=== PATIENT | female | born 1950 | race Caucasian/White ===

== ENCOUNTER → 2020-02-14 | Emergency (ER) | payer MEDICARE ==
[~2020-02-14] VITALS: Ht 162.6 cm; Wt 65.9 kg
[~2020-02-14] MED LIST: HYDR1TAB10 PO; LIDOcaine Viscous 15ml cup MM STA; dexamethasone sod phosphate 10mg/ml inj PO STA; estrace cream
[2020-02-14 10:17] VITALS: BP 134/74
== END | disposition home or self-care (01) ==
LOC: ER 08:32
DX: J02.9 Acute pharyngitis, unspecified (principal); R50.9 Fever, unspecified; R05 Cough; R51.9 Headache, unspecified; R07.89 Other chest pain; Z20.828 Contact with and (suspected) exposure to other viral communicable diseases; E78.00 Pure hypercholesterolemia, unspecified; K21.9 Gastro-esophageal reflux disease without esophagitis; G89.29 Other chronic pain; F41.9 Anxiety disorder, unspecified; F32.9 Major depressive disorder, single episode, unspecified; F12.90 Cannabis use, unspecified, uncomplicated; Z98.890 Other specified postprocedural states; Z72.89 Other problems related to lifestyle; Z88.1 Allergy status to other antibiotic agents; Z88.8 Allergy status to other drugs, medicaments and biological substances
CPT/HCPCS: 36415; 87081; 87635; 87880; 99283; J1100

== ENCOUNTER 2021-06-13 08:53 | Emergency (ER) | payer MEDICARE ==
[~2021-06-13] VITALS: Ht 162.6 cm; Wt 70.9 kg
[~2021-06-13 08:53] MED LIST changes: -LIDOcaine Viscous 15ml cup MM STA; -dexamethasone sod phosphate 10mg/ml inj PO STA
[2021-06-13 09:34] LABS: BASOPHILS % (AUTO) 0.4 % (0-1); EOSINOPHILS # (AUTO) 0.1 X10'3 (0-0.9); EOSINOPHILS % (AUTO) 1.2 % (0-6); HEMATOCRIT 40.4 % (35.0-45.0); HEMOGLOBIN 13.6 g/dl (12.0-16.0); LYMPHOCYTES # (AUTO) 1.7 X10'3 (1.1-4.8); LYMPHOCYTES % (AUTO) 24.5 % (21-51); MEAN CORPUSCULAR HEMOGLOBIN 31.1 PG (27.0-31.0); MEAN CORPUSCULAR HGB CONC 33.7 g/dL (33.0-36.5); MEAN CORPUSCULAR VOLUME 92.4 FL (78-98); MONOCYTES # (AUTO) 0.4 X10'3 (0-0.9); MONOCYTES % (AUTO) 5.8 % (2-12); NEUTROPHILS # (AUTO) 4.9 X10'3 (1.8-7.7); NEUTROPHILS % (AUTO) 68.1 % (42-75); PLATELET COUNT 437 X10'3 (140-440); RED BLOOD COUNT 4.38 X10'6 (4.20-5.60); RED CELL DISTRIBUTION WIDTH 14.1 % (11.5-14.5); WHITE BLOOD COUNT 7.1 X10'3 (4.5-11.0)
[2021-06-13 09:52] LABS: ALANINE AMINOTRANSFERASE 15 U/L (12-78); ALBUMIN 4.3 G/DL (3.4-5.0); ALBUMIN/GLOBULIN RATIO 1.2 (1.1-1.5); ALKALINE PHOSPHATASE 87 IU/L (46-116); ANION GAP 11 (8-16); ASPARTATE AMINO TRANSFERASE 16 U/L (10-37); BILIRUBIN,TOTAL 0.3 MG/DL (0.1-1.0); BLOOD UREA NITROGEN 14 MG/DL (7-18); BUN/CREATININE RATIO 15.2 (6.6-38.0); CALCIUM 9.2 MG/DL (8.5-10.1); CHLORIDE 105 MMOL/L (99-107); CREATININE 0.92 MG/DL (0.40-0.90); GLUCOSE 105 MG/DL (70-104); LIPASE 114 U/L (73-393); SODIUM 141 MMOL/L (135-145); TOTAL CARBON DIOXIDE 25.1 MMOL/L (24-32); TOTAL PROTEIN 7.9 G/DL (6.4-8.2); eGFR 61 ML/MIN
[2021-06-13 09:56] LABS: CLARITY,URINE SLIGHTLY CLOUDY (Clear); COLOR,URINE YELLOW (Yellow); GLUCOSE, URINE NEGATIVE (Neg); KETONES,URINE NEGATIVE (Neg); LEUKOCYTE ESTERASE ,URINE SMALL (Neg); NITRITES, URINE NEGATIVE (Neg); OCCULT BLOOD,URINE NEGATIVE (Neg); PROTEIN,URINE NEGATIVE (Neg); UROBILINOGEN,URINE 0.2 E.U/dL (0.2-1.0)
[2021-06-13 09:57] LABS: UA COLLECTION TYPE CLN CATCH MIDSTREAM
[2021-06-13 10:05] LABS: MUCUS STRANDS FEW /LPF (Neg); SQUAMOUS EPITHELIAL CELL,UR MODERATE /LPF (FEW)
[2021-06-13 10:06] LABS: RBC,URINE 0-2 /HPF (0-2); WBC,URINE 0-4 /HPF (0-4)
[2021-06-13 10:07] LABS: BACTERIA,URINE FEW /HPF (Neg); TRANSITIONAL EPI CELLS,URINE MODERATE /HPF
[2021-06-13] MEDS ORDERED: ondansetron/PF 4mg/2ml inj IV ONE (10:25)
[2021-06-13] MEDS ORDERED: fentaNYL/PF 50MCG/1 ML 2ML syringe IV ONE (10:25)
--- NOTE | 2021-06-13 10:43 | NUR ---
ASSISTING RN WITH PT CARE, IV STARTED ON FIRST ATTEMPT, MEDICATED PER ORDER, DR DANIELS AWARE, PT HAS FAMILY AT BEDSIDE
[2021-06-13 12:00] VITALS: BP 123/57
== END 2021-06-13 12:19 | disposition home or self-care (01) ==
LOC: ER 08:54
DX: K42.9 Umbilical hernia without obstruction or gangrene (principal); K43.9 Ventral hernia without obstruction or gangrene; E78.00 Pure hypercholesterolemia, unspecified; K21.9 Gastro-esophageal reflux disease without esophagitis; G89.29 Other chronic pain; M79.7 Fibromyalgia; Z90.49 Acquired absence of other specified parts of digestive tract; Z72.89 Other problems related to lifestyle; Z98.890 Other specified postprocedural states; Z88.1 Allergy status to other antibiotic agents; Z88.8 Allergy status to other drugs, medicaments and biological substances
CPT/HCPCS: 36415; 74176; 80053; 81001; 83690; 85025; 87088; 96374; 96375; 99284; J2405; J3010

== ENCOUNTER 2021-06-29 06:46 | Day surgery (SDC) | payer MEDICARE ==
[2021-06-24 16:04] LABS: CLARITY,URINE CLEAR (Clear); GLUCOSE, URINE NEGATIVE (Neg); KETONES,URINE NEGATIVE (Neg); LEUKOCYTE ESTERASE ,URINE NEGATIVE (Neg); NITRITES, URINE NEGATIVE (Neg); OCCULT BLOOD,URINE TRACE-INTACT (Neg); PROTEIN,URINE NEGATIVE (Neg); UROBILINOGEN,URINE 0.2 E.U/dL (0.2-1.0)
[2021-06-24 16:06] LABS: COLOR,URINE STRAW (Yellow); UA COLLECTION TYPE CLN CATCH MIDSTREAM
[2021-06-24 16:10] LABS: BACTERIA,URINE FEW /HPF (Neg); MUCUS STRANDS NONE SEEN /LPF (Neg); RBC,URINE 0-2 /HPF (0-2); SQUAMOUS EPITHELIAL CELL,UR FEW /LPF (FEW); WBC,URINE 0-4 /HPF (0-4)
[2021-06-24 16:10] LABS: BASOPHILS % (AUTO) 0.3 % (0-1); EOSINOPHILS % (AUTO) 0.4 % (0-6); LYMPHOCYTES # (AUTO) 1.9 X10'3 (1.1-4.8); LYMPHOCYTES % (AUTO) 18.5 % (21-51); MEAN CORPUSCULAR HGB CONC 33.4 g/dL (33.0-36.5); MEAN CORPUSCULAR VOLUME 92.8 FL (78-98); MEAN PLATELET VOLUME 6.8 FL (7.4-10.4); MONOCYTES # (AUTO) 0.5 X10'3 (0-0.9); MONOCYTES % (AUTO) 5.1 % (2-12); NEUTROPHILS # (AUTO) 7.7 X10'3 (1.8-7.7); NEUTROPHILS % (AUTO) 75.7 % (42-75); PRE OP HEMATOCRIT 39.9 % (35.0-45.0); PRE OP HEMOGLOBIN 13.3 g/dL (12.0-16.0); PRE OP PLATELET COUNT 424 X10'3 (140-440); RED BLOOD COUNT 4.29 X10'6 (4.20-5.60); RED CELL DISTRIBUTION WIDTH 13.9 % (11.5-14.5)
[2021-06-24 16:22] LABS: ALBUMIN/GLOBULIN RATIO 1.1 (1.1-1.5); ALKALINE PHOSPHATASE 89 IU/L (46-116); BLOOD UREA NITROGEN 17 MG/DL (7-18); BUN/CREATININE RATIO 20.5 (6.6-38.0); CALCIUM 9.4 MG/DL (8.5-10.1); CHLORIDE 105 MMOL/L (99-107); CREATININE 0.83 MG/DL (0.40-0.90); PRE OP ALT 8 U/L (30-65); PRE OP ANION GAP 10 (8-16); PRE OP AST 19 U/L (10-37); PRE OP BILIRUB, TOTAL 0.2 MG/DL (0.0-1.0); PRE OP GLUCOSE 109 MG/DL (70-104); PRE OP POTASSIUM 4.1 MMOL/L (3.4-5.1); PRE OP SODIUM 140 MMOL/L (135-145); TOTAL CARBON DIOXIDE 24.9 MMOL/L (24-32); TOTAL PROTEIN 7.7 G/DL (6.4-8.2); eGFR 68 ML/MIN
[2021-06-29] VITALS (23 sets, daily range): BP systolic 123–153; BP diastolic 61–86
[~2021-06-29] VITALS: Ht 162.6 cm; Wt 72.1 kg
[~2021-06-29 06:46] MED LIST changes: +CHOL20004 PO; +HYDR-3965 PO; -HYDR1TAB10 PO; +clindamycin-Cleocin 900mg/D5W 50 ML IV ONE; -estrace cream; +famotidine 20mg tablet PO ONE; +ringers solution, lacted 1,000 ML IV SCH
[2021-06-29] MEDS ORDERED: proCHLORperazine 10 MG/2 ml inj IV PRN (07:50)
[2021-06-29] MEDS ORDERED: ondansetron/PF 4mg/2ml inj IV PRN (07:50)
[2021-06-29] MEDS ORDERED: morphine 2 MG/ML inj. syringe IV PRN (07:50)
[2021-06-29] MEDS ORDERED: ringers solution, lacted 1,000 ML IV SCH (07:50)
[2021-06-29] MEDS ORDERED: morphine 4 MG/ML inj SYRINge IV PRN (07:50)
[2021-06-29] MEDS ORDERED: meperidine/PF 25mg/ml syringe IV PRN ×2 (07:50)
[2021-06-29] MEDS ORDERED: aprepitant 40mg capsule PO ONE (08:08)
[2021-06-29] MEDS ORDERED: ROPIVAcaine 0.5% (5mg/ml) 30ml vial ONE (09:49)
[2021-06-29] MEDS ORDERED: neostigmine methylsulfate 1 MG/ML 10ml vial ONE (09:57)
[2021-06-29] MEDS ORDERED: sevoflurane 250ml liquid IH ONE (09:57)
[2021-06-29] MEDS ORDERED: glycopyrrolate 0.2mg/ml inj ONE (09:57)
[2021-06-29] MEDS ORDERED: midazolam 1 mg/ML 2ml injection ONE (10:08)
[2021-06-29] MEDS ORDERED: fentaNYL/PF 50MCG/1 ML 2ML syringe ONE (10:08)
[2021-06-29] MEDS ORDERED: propofol inj 20 ML IV ONE (10:17)
[2021-06-29] MEDS ORDERED: rocuronium 10mg/ml inj IV ONE (10:17)
[2021-06-29] MEDS ORDERED: dexamethasone sod phosphate 4mg/ml inj. ONE (10:17)
[2021-06-29] MEDS ORDERED: ondansetron/PF 4mg/2ml inj ONE (10:21)
[2021-06-29] MEDS ORDERED: LIDOcaine 1%/PF 5ML 10 MG/ML VIAL ONE (10:21)
[2021-06-29] MEDS ORDERED: acetaminophen 1,000mg/100ml IV 100 ML IV ONE (11:04)
--- NOTE | 2021-06-29 11:13 | NUR ---
Received from OR via LE, 20G TO RIGHT AC, LAP SITE TO ABD CDI WITH DERMABARMIDA , accompanied by Anesthesiologist DR SIMS and report given by Anesthesiolgist. Addendum: 06/29/21 at 1135 by Gracie Goldstein RN Amended: Links added.
[2021-06-29] MEDS: meperidine/PF 25mg/ml syringe IV PRN ×2 (11:43→12:21)
--- NOTE | 2021-06-29 14:53 | NUR ---
PT DC TO HOME VIA WC WITH . 20G IV DC CATH INTACT DSG APPLIED. PT VERBAL UNDERSTANDING OF DC INSTRUCTIONS. LAP SITES TO ABD CDI. Addendum: 06/29/21 at 1530 by Gracie Goldstein RN Amended: Links added.
== END 2021-06-29 14:53 | disposition home or self-care (01) ==
LOC: PAS 06:46
PROVIDERS: ATTEND Surgery
DX: K43.9 Ventral hernia without obstruction or gangrene (principal); K42.9 Umbilical hernia without obstruction or gangrene; G90.50 Complex regional pain syndrome I, unspecified; D64.9 Anemia, unspecified; I45.10 Unspecified right bundle-branch block; G43.909 Migraine, unspecified, not intractable, without status migrainosus; Z88.1 Allergy status to other antibiotic agents; Z88.8 Allergy status to other drugs, medicaments and biological substances; Z91.018 Allergy to other foods; Z87.01 Personal history of pneumonia (recurrent); Z98.890 Other specified postprocedural states; Z79.899 Other long term (current) drug therapy; Z82.49 Family history of ischemic heart disease and other diseases of the circulatory system; Z80.3 Family history of malignant neoplasm of breast
CPT/HCPCS: 36415; 49652; 49654; 80053; 81001; 82948; 85025; 93005; 93306; C1713; C1781; J0131; J1100; J2175; J2250; J2270; J2405; J2704; J2710; J2795; J3010; J3490; J7030; J7120; J8501; Z7506; Z7508; Z7512; A4618; A7000

== ENCOUNTER 2021-06-29 20:58 | Emergency (ER) | payer MEDICARE ==
[~2021-06-29] VITALS: Ht 162.6 cm; Wt 72.1 kg
[~2021-06-29 20:58] MED LIST changes: -clindamycin-Cleocin 900mg/D5W 50 ML IV ONE; -famotidine 20mg tablet PO ONE; -ringers solution, lacted 1,000 ML IV SCH
[2021-06-29 21:54] VITALS: BP 122/66
[2021-06-29] MEDS ORDERED: normal saline 1000ML IV soln IVB ONE (22:50)
[2021-06-29] MEDS ORDERED: morphine 4 MG/ML inj SYRINge IV ONE (22:55)
[2021-06-29] MEDS ORDERED: ondansetron/PF 4mg/2ml inj IV ONE (22:55)
[2021-06-29 23:30] LABS: BASOPHILS % (AUTO) 0.3 % (0-1); EOSINOPHILS % (AUTO) 0 % (0-6); HEMATOCRIT 40.1 % (35.0-45.0); LYMPHOCYTES # (AUTO) 0.7 X10'3 (1.1-4.8); LYMPHOCYTES % (AUTO) 7.1 % (21-51); MEAN CORPUSCULAR HEMOGLOBIN 29.9 PG (27.0-31.0); MEAN CORPUSCULAR HGB CONC 32.4 g/dL (33.0-36.5); MEAN CORPUSCULAR VOLUME 92.2 FL (78-98); MEAN PLATELET VOLUME 6.7 FL (7.4-10.4); MONOCYTES # (AUTO) 0.2 X10'3 (0-0.9); MONOCYTES % (AUTO) 1.9 % (2-12); NEUTROPHILS # (AUTO) 9.3 X10'3 (1.8-7.7); NEUTROPHILS % (AUTO) 90.7 % (42-75); PLATELET COUNT 394 X10'3 (140-440); RED BLOOD COUNT 4.35 X10'6 (4.20-5.60); RED CELL DISTRIBUTION WIDTH 14.1 % (11.5-14.5); WHITE BLOOD COUNT 10.3 X10'3 (4.5-11.0)
[2021-06-30 00:07] LABS: ALANINE AMINOTRANSFERASE 13 U/L (12-78); ALBUMIN 3.5 G/DL (3.4-5.0); ANION GAP 12 (8-16); ASPARTATE AMINO TRANSFERASE 19 U/L (10-37); BILIRUBIN,TOTAL 0.3 MG/DL (0.1-1.0); BLOOD UREA NITROGEN 9 MG/DL (7-18); BUN/CREATININE RATIO 10.8 (6.6-38.0); CALCIUM 8.2 MG/DL (8.5-10.1); CHLORIDE 105 MMOL/L (99-107); CREATININE 0.83 MG/DL (0.40-0.90); GLUCOSE 139 MG/DL (70-104); POTASSIUM 4.2 MMOL/L (3.5-5.1); SODIUM 138 MMOL/L (135-145); TOTAL CARBON DIOXIDE 21.2 MMOL/L (24-32); TOTAL PROTEIN 6.9 G/DL (6.4-8.2); eGFR 68 ML/MIN
[2021-06-30 00:09] LABS: ALKALINE PHOSPHATASE 77 IU/L (46-116)
[2021-06-30 00:10] LABS: LIPASE 238 U/L (73-393)
== END 2021-06-30 00:50 | disposition home or self-care (01) ==
LOC: ER 20:59
DX: R55 Syncope and collapse (principal); R61 Generalized hyperhidrosis; R10.84 Generalized abdominal pain; E78.00 Pure hypercholesterolemia, unspecified; K21.9 Gastro-esophageal reflux disease without esophagitis; G89.29 Other chronic pain; M79.7 Fibromyalgia; Z72.89 Other problems related to lifestyle; Z98.890 Other specified postprocedural states; Z98.891 History of uterine scar from previous surgery; Z88.1 Allergy status to other antibiotic agents; Z88.8 Allergy status to other drugs, medicaments and biological substances; Z79.899 Other long term (current) drug therapy
CPT/HCPCS: 36415; 80053; 83690; 85025; 96361; 96374; 96375; 99284; J2270; J2405; J7030